=== PATIENT | male | born 1995 | race African-American/Black ===

== ENCOUNTER 2017-10-03 22:23 | Emergency (ER) | payer OTHER, SELFPAY ==
--- NOTE | 2017-10-03 23:06 | RAD ---
LEFT ANKLE THREE VIEW 10/03/17 HISTORY: Emergency exam. Trauma. COMPARISON: None. FINDINGS: There is extensive lateral malleolar edema. Small avulsion fracture of the tip of the lateral malleol us. IMPRESSION: Severe lateral malleolar edema as well as small avulsion fracture of the tip of the lateral malleolus . POS: IAN
== END 2017-10-03 23:12 | disposition home or self-care (01) ==
LOC: SCSER 22:23
DX: S82.62XA Displaced fracture of lateral malleolus of left fibula, initial encounter for closed fracture (principal); X50.1XXA Overexertion from prolonged static or awkward postures, initial encounter; Y93.67 Activity, basketball